=== PATIENT | female | born 1995 | race Caucasian/White ===

== ENCOUNTER 2016-07-11 03:38 | Emergency (ER) | payer SELFPAY ==
[2016-07-11 03:48] VITALS: RESP 16; TEMP 97
--- NOTE | 2016-07-11 04:09 | ED ---
Psych HPI - General Chief Complaint: Psychiatric Symptoms Stated Complaint: mental health Time Seen by Provider: 07/11/16 03:57 Source: EMS Mode of arrival: EMS - History of Present Illness Initial Comments: This is a 20-year-old female with history depression who presents emergency department for suicidal ideation. The patient states that is the anniversary of one of her best friends nya. She states that she was drinking and became very depressed. She decided that she wanted to take her life. She used a telephone coin box collector and started cutting the inside of her legs however decided to stop herself when she started thinking of her other family members. She currently denies any suicidal ideation. She states her last tetanus was 3 years ago. - Related Data Allergies Allergy/AdvReac Type Severity Reaction Status Date / Time No Known Allergies Allergy Verified 07/11/16 03:42 Review of Systems ROS Statement: Those systems with pertinent positive or pertinent negative responses have been documented in the HPI. ROS Other: All systems not noted in ROS Statement are negative. Past Medical History Past Medical History: Asthma History of Any Multi-Drug Resistant Organisms: None Reported Past Surgical History: No Surgical Hx Reported Past Psychological History: No Psychological Hx Reported Smoking Status: Current every day smoker Past Alcohol Use History: Daily Past Drug Use History: None Reported General Exam - General Exam Comments Initial Comments: Constitutional: Awake alert Appears comfortable Head: Normocephalic atraumatic Eyes: no conjunctival injection No scleral icterus EOMI Neck: No JVD Supple Heart: Regular rate rhythm normal S1-S2 no murmurs Lungs: Clear to auscultation bilaterally No wheezing No rales Abdomen: Soft nondistended nontender Extremities: Non edematous DP pulses intact Radial pulses intact, multiple superficial lacerations to bilateral inner thigh Neuro: A&Ox3 No focal neurologic deficits Psych: Depressed and tearful Limitations: no limitations Course Vital Signs 07/11/16 03:42 Temperature 97.0 F L Pulse Rate 69 Respiratory 16 Rate Blood Pressure 154/79 O2 Sat by Pulse 98 Oximetry Medical Decision Making - Medical Decision Making Is a 20-year-old female presents emergency department for depression and suicidal ideation. Bedtime patient got here she denied any suicidal intent. She was evaluate by mental health here and deemed to not require inpatient therapy. She's can go home with her mother and follow-up with her psychiatrist. Mother and patient have contracted for her safety. - Lab Data Lab Results 07/11/16 07/11/16 Range/Units 05:14 05:14 Urine Color Yellow Urine Appearance Cloudy H (Clear) Urine pH 5.5 (5.0-8.0) Ur Specific [place] 1.019 (1.001-1.035) Urine Protein 1+ H (Negative) Urine Glucose (UA) Negative (Negative) Urine Ketones 1+ H (Negative) Urine Blood Small H (Negative) Urine Nitrate Negative (Negative) Urine Bilirubin Negative (Negative) Urine Urobilinogen <2.0 (<2.0) mg/dL Ur Leukocyte Esterase Small H (Negative) Urine RBC 4 (0-5) /hpf Urine WBC 12 H (0-5) /hpf Ur Squamous Epith Cells 5 H (0-4) /hpf Urine Mucus Many H (None) /hpf Urine HCG, Qual Not Detected (Not Detectd) Urine Opiates Screen Not Detected (NotDetected) Ur Oxycodone Screen Not Detected (NotDetected) Urine Methadone Screen Not Detected (NotDetected) Ur Propoxyphene Screen Not Detected (NotDetected) Ur Barbiturates Screen Not Detected (NotDetected) U Tricyclic Antidepress Not Detected (NotDetected) Ur Phencyclidine Scrn Not Detected (NotDetected) Ur Amphetamines Screen Not Detected (NotDetected) U Methamphetamines Scrn Not Detected (NotDetected) U Benzodiazepines Scrn Not Detected (NotDetected) Urine Cocaine Screen Not Detected (NotDetected) U Marijuana (THC) Screen Detected H (NotDetected) Disposition Clinical Impression: Depression, Suicidal ideation Disposition: HOME SELF-CARE Condition: Stable Instructions: Depression (ED) Referrals: None,Stated [Primary Care Provider] - 1-2 days
[2016-07-11 05:25] LABS: Appearance,Urine Cloudy (Clear); Bilirubin,Urine Negative (Negative); Glucose,Urine (UA) Negative (Negative); Ketones,Urine 1+ (Negative); Leukocyte Esterase,Urine Small (Negative); Mucus,Urine Many /hpf; Nitrite,Urine Negative (Negative); PH, Urine 5.5 (5.0-8.0); Particle Count 13511; Protein,Urine 1+ (Negative); RBC,Urine 4 /hpf (0-5); Specific Gravity,Urine 1.019 (1.001-1.035); Squamous Epithelial Cell,Urine 5 /hpf (0-4); UA Billing (MACRO vs. MICRO) MICRO; Urobilinogen,Urine <2.0 mg/dL (<2.0); WBC,Urine 12 /hpf (0-5)
[2016-07-11] MEDS ORDERED: ACETAMINOPHEN TAB 325 MG TAB PO STA (06:37)
[2016-07-11 06:52] VITALS: BP 117/62; PULSE 78
== END 2016-07-11 06:50 | disposition home or self-care (01) ==
LOC: EC 03:38
DX: R45.851 Suicidal ideations (principal); F32.9 Major depressive disorder, single episode, unspecified; F17.200 Nicotine dependence, unspecified, uncomplicated
CPT/HCPCS: 80306; 81001; 81025; 82075; 99284

== ENCOUNTER → 2016-09-28 | Outpatient (CLI) | payer SELFPAY | END | disposition home or self-care (01) | LOC: LABWHC1 15:19 | PROVIDERS: ATTEND Nurse Practitioner Family | DX: R55 Syncope and collapse (principal) | CPT/HCPCS: 36415; 93005 ==